=== PATIENT | female | born 1955 | race Caucasian/White ===

== ENCOUNTER 2021-11-01 10:30 | Emergency (ER) | payer MEDICARE, MEDICAID ==
[~2021-11-01] VITALS: Ht 170.2 cm; Wt 120.2 kg
[~2021-11-01 10:30] MED LIST: CARV25TA2 PO; COU4T PO; FLEC100T2 PO; LISI5TAB22 PO; WARF5TAB2 PO
[2021-11-01] MEDS ORDERED: acetaminophen 325mg tablet PO ONE (10:45)
--- NOTE | 2021-11-01 11:02 | NUR ---
PT OFF FLOOR TO CT
--- NOTE | 2021-11-01 11:20 | NUR ---
PT RETURNED FROM CT WITHOUT INCIDENT
--- NOTE | 2021-11-01 11:50 | NUR ---
AT BEDSIDE FOR D/C
[2021-11-01 12:15] VITALS: BP 115/72
== END 2021-11-01 12:20 | disposition home or self-care (01) ==
LOC: ER 10:31
DX: S00.81XA Abrasion of other part of head, initial encounter (principal); S09.90XA Unspecified injury of head, initial encounter; S00.83XA Contusion of other part of head, initial encounter; M54.2 Cervicalgia; I48.91 Unspecified atrial fibrillation; I10 Essential (primary) hypertension; K21.9 Gastro-esophageal reflux disease without esophagitis; Z79.899 Other long term (current) drug therapy; W10.8XXA Fall (on) (from) other stairs and steps, initial encounter; Y93.89 Activity, other specified; Y92.89 Other specified places as the place of occurrence of the external cause
CPT/HCPCS: 70450; 70486; 72125; 99285

== ENCOUNTER 2022-11-26 18:20 | Inpatient (IN) | payer MEDICARE, MEDICAID ==
[~2022-11-26] VITALS: Ht 170.2 cm; Wt 120.1 kg
[2022-11-26] MEDS ORDERED: ipratropium/albuterol 3ml nebule NEB ONE (18:42)
[2022-11-26] MEDS ORDERED: CefTRIAXone 2gm/D5W 50ml BAG 50 ML IV ONE (18:45)
[2022-11-26] MEDS ORDERED: methylPREDNISolone sod succ 125mg/2ml vial IV ONE (18:45)
[2022-11-26] MEDS ORDERED: normal saline 1000ML IV soln IVB ONE (18:45)
[2022-11-26 19:16] LABS: BASOPHILS % (AUTO) 0.5 % (0-1); EOSINOPHILS % (AUTO) 0.1 % (0-6); HEMOGLOBIN 13.8 g/dl (12.0-16.0); LYMPHOCYTES # (AUTO) 0.5 X10'3 (1.1-4.8); LYMPHOCYTES % (AUTO) 9.7 % (21-51); MEAN CORPUSCULAR HEMOGLOBIN 31.8 PG (27.0-31.0); MEAN CORPUSCULAR HGB CONC 33.6 g/dL (33.0-36.5); MEAN CORPUSCULAR VOLUME 94.6 FL (78-98); MEAN PLATELET VOLUME 9.7 FL (7.4-10.4); MONOCYTES # (AUTO) 0.4 X10'3 (0-0.9); MONOCYTES % (AUTO) 7.3 % (2-12); NEUTROPHILS % (AUTO) 82.4 % (42-75); PLATELET COUNT 121 X10'3 (140-440); RED BLOOD COUNT 4.34 X10'6 (4.20-5.60); RED CELL DISTRIBUTION WIDTH 13.7 % (11.5-14.5); WHITE BLOOD COUNT 4.9 X10'3 (4.5-11.0)
[2022-11-26] MEDS ORDERED: albuterol 2.5 MG/3 ML nebule CONTNEB ONE (19:20)
[2022-11-26 19:31] LABS: ALANINE AMINOTRANSFERASE 23 U/L (12-78); ALBUMIN 3.7 G/DL (3.4-5.0); ALKALINE PHOSPHATASE 75 IU/L (46-116); ANION GAP 7 (8-16); ASPARTATE AMINO TRANSFERASE 31 U/L (10-37); BLOOD UREA NITROGEN 23 MG/DL (7-18); BUN/CREATININE RATIO 17.2 (6.6-38.0); CALCIUM 9.8 MG/DL (8.5-10.1); CHLORIDE 104 MMOL/L (99-107); CREATININE 1.34 MG/DL (0.40-0.90); GLUCOSE 170 MG/DL (70-104); MAGNESIUM 1.5 MG/DL (1.5-2.4); POTASSIUM 4.5 MMOL/L (3.5-5.1); SODIUM 139 MMOL/L (135-145); TOTAL CARBON DIOXIDE 27.8 MMOL/L (24-32); TOTAL PROTEIN 7.5 G/DL (6.4-8.2); eGFR 39 ML/MIN
[2022-11-26] MEDS ORDERED: diltiazem 5mg/ml 5ml inj. IV ONE ×2 (19:45→23:10)
[2022-11-26] MEDS ORDERED: ringers solution, lacted 1,000 ML IV ONE (19:45)
[2022-11-26 20:11] LABS: APTT 27 SECONDS (22-32)
[2022-11-26] MEDS ORDERED: iohexol 300mg/ml 100ml inj. ONE (21:43)
[2022-11-26] MEDS ORDERED: magnesium 4gm in 100ml NS 100 ML IV ONE (21:45)
[2022-11-26] MEDS ORDERED: ondansetron/PF 4mg/2ml inj IV PRN (21:55)
[2022-11-26] MEDS ORDERED: magnesium hydroxide 30ml (MOM) UD suspension PO PRN (21:55)
[2022-11-26] MEDS ORDERED: magnesium 4gm in 100ml NS 100 ML IV PRN (21:55)
[2022-11-26] MEDS ORDERED: magnesium Cl slow-release 64mg tablet PO PRN (21:55)
[2022-11-26] MEDS ORDERED: mag hydrox/Alum hydrox/simeth 30ml oral suspension PO PRN (21:55)
[2022-11-26] MEDS ORDERED: potassium Cl 40MEQ/1/2NS 520ml 520 ML IV PRN (21:55)
[2022-11-26] MEDS ORDERED: potassium Cl 20 mEq SR tablet PO PRN ×2 (21:55)
[2022-11-26] MEDS ORDERED: albuterol 1.25 MG/3 ML (1/2 strength) nebule NEB PRN (22:00)
[2022-11-26 22:13] LABS: CLARITY,URINE CLOUDY (Clear); COLOR,URINE YELLOW (Yellow); GLUCOSE, URINE NEGATIVE (Neg); KETONES,URINE NEGATIVE (Neg); LEUKOCYTE ESTERASE ,URINE NEGATIVE (Neg); NITRITES, URINE POSITIVE (Neg); OCCULT BLOOD,URINE MODERATE (Neg); PH,URINE 5.5 (4.8-8.0); PROTEIN,URINE >=300 mg/dl (Neg); UROBILINOGEN,URINE 0.2 E.U/dL (0.2-1.0)
[2022-11-26 22:16] LABS: UA COLLECTION TYPE CLN CATCH MIDSTREAM
[2022-11-26] MEDS ORDERED: EXEM25TA5 PO (22:21)
[2022-11-26] MEDS ORDERED: FURO20TA4 PO (22:21)
[2022-11-26] MEDS ORDERED: PANT40TA54 PO (22:21)
[2022-11-26 22:24] LABS: SQUAMOUS EPITHELIAL CELL,UR MANY /LPF (FEW)
[2022-11-26] MEDS ORDERED: PROP40TA72 PO (22:24)
[2022-11-26] MEDS ORDERED: WARF1TAB83 PO (22:24)
[2022-11-26 22:25] LABS: FINE GRANULAR CAST 0-3 /LPF (NEGATIVE)
[2022-11-26 22:27] LABS: AMORPHOUS URATES 1+; BACTERIA,URINE 2+ /HPF (Neg)
[2022-11-26 22:29] LABS: YEAST FEW /HPF (NEGATIVE)
[2022-11-26 22:31] LABS: TRANSITIONAL EPI CELLS,URINE MODERATE /HPF
[2022-11-27] VITALS (13 sets, daily range): BP systolic 109–138; BP diastolic 58–77
[2022-11-27] MEDS ORDERED: carVEDilol 12.5mg tablet PO ONE (00:30)
--- NOTE | 2022-11-27 00:38 | NUR ---
PATIENT PLACED ON A HOSPITAL BED NO NEEDS AT THIS TIME
[2022-11-27] MEDS ORDERED: carvedilol 6.25mg tablet PO SCH ×2 (01:45→01:50)
[2022-11-27] MEDS ORDERED: carvedilol 6.25mg tablet PO ONE ×2 (01:45→01:50)
[2022-11-27] MEDS: diltiazem-NS 100mg/100ml 100 ML IV SCH ×3 (03:10→23:34)
[2022-11-27 03:46] LABS: BASOPHILS % (AUTO) 0.3 % (0-1); EOSINOPHILS % (AUTO) 0 % (0-6); HEMATOCRIT 39.5 % (35.0-45.0); HEMOGLOBIN 13.1 g/dl (12.0-16.0); LYMPHOCYTES # (AUTO) 0.5 X10'3 (1.1-4.8); LYMPHOCYTES % (AUTO) 6.7 % (21-51); MEAN CORPUSCULAR HEMOGLOBIN 31.5 PG (27.0-31.0); MEAN CORPUSCULAR VOLUME 95.5 FL (78-98); MEAN PLATELET VOLUME 9.9 FL (7.4-10.4); MONOCYTES # (AUTO) 0.5 X10'3 (0-0.9); MONOCYTES % (AUTO) 6.8 % (2-12); NEUTROPHILS # (AUTO) 6.2 X10'3 (1.8-7.7); NEUTROPHILS % (AUTO) 86.2 % (42-75); PLATELET COUNT 132 X10'3 (140-440); RED BLOOD COUNT 4.14 X10'6 (4.20-5.60); RED CELL DISTRIBUTION WIDTH 13.9 % (11.5-14.5); WHITE BLOOD COUNT 7.2 X10'3 (4.5-11.0)
[2022-11-27 04:04] LABS: ALANINE AMINOTRANSFERASE 25 U/L (12-78); ALBUMIN 3.5 G/DL (3.4-5.0); ALBUMIN/GLOBULIN RATIO 0.9 (1.1-1.5); ALKALINE PHOSPHATASE 71 IU/L (46-116); ANION GAP 8 (8-16); ASPARTATE AMINO TRANSFERASE 30 U/L (10-37); BILIRUBIN,TOTAL 1.7 MG/DL (0.1-1.0); BLOOD UREA NITROGEN 24 MG/DL (7-18); BUN/CREATININE RATIO 19.5 (6.6-38.0); CALCIUM 9.6 MG/DL (8.5-10.1); CHLORIDE 103 MMOL/L (99-107); CREATININE 1.23 MG/DL (0.40-0.90); GLUCOSE 153 MG/DL (70-104); POTASSIUM 4.5 MMOL/L (3.5-5.1); SODIUM 138 MMOL/L (135-145); TOTAL CARBON DIOXIDE 26.8 MMOL/L (24-32); TOTAL PROTEIN 7.2 G/DL (6.4-8.2); eGFR 44 ML/MIN
[2022-11-27 04:11] LABS: MAGNESIUM 4.8 MG/DL (1.5-2.4)
--- NOTE | 2022-11-27 07:16 | NUR ---
MD Martinez made aware of mag of 4.8. Per MD no new orders at this time.
[2022-11-27] MEDS ORDERED: carVEDilol 12.5mg tablet PO SCH (08:00)
[2022-11-27] MEDS ORDERED: methylPREDNISolone sod succ 125mg/2ml vial IV SCH (08:00)
[2022-11-27] MEDS: K and/or MAG REPLACEMENT MC SCH ×2 (08:00→19:36)
[2022-11-27] MEDS: pantoprazole 40mg Tablet.DR PO SCH (08:00)
[2022-11-27] MEDS: docusate sod 100mg capsule PO SCH ×2 (08:00→19:42)
[2022-11-27] MEDS: lisinopril 5mg tablet PO SCH (08:01)
[2022-11-27] MEDS: carVEDilol 12.5mg tablet PO SCH ×2 (08:01→19:43)
--- NOTE | 2022-11-27 11:43 | NUR ---
HI DR. NAILS, PT [facility] IN ROOM 3028B STILL SAT 89-90% ON MASK 10L. RT SUGGESTS MAYBE BIPAP? HR STILL 115-150 ON CARDIZEM 5ML/HR. THANKS ERIKA SMITHU
--- NOTE | 2022-11-27 12:05 | NUR ---
KARAN FOR PT [facility] ROOM 3021B. URGENT PLEASE. THANKS ERIKA SMITHU
[2022-11-27] MEDS: CefTRIAXone 2gm/D5W 50ml BAG 50 ML IV SCH (12:10)
[2022-11-27 12:21] LABS: ABG BASE EXCESS -9.2 mmol/L (-2.0-2.0); ABG HCO3 21.3 mmol/L (22.0-26.0); ABG OXYGEN SATURATION 94.7 % (94-97); ABG PCO2 (T) 66.7 mmHg (32.0-45.0); ABG PO2 (T) 89.6 mmHg (75.0-100.0); ALLEN'S TEST POSITIVE; FCOHb 0.5 % (0.0-3.9); FLOW 10 L/min; FMetHb 0.4 % (0.0-1.5); FO2Hb 93.8 % (94-97); PATIENT TEMPERATURE 36.6; TOTAL HEMOGLOBIN 14.2 G/dl (12.0-16.0)
--- NOTE | 2022-11-27 14:03 | NUR ---
NEED IV FOR PT IN 3028B, [facility], PLEASE. THANKS KIRT Segundo
[2022-11-27] MEDS: furosemide 40mg/4ml inj IV SCH ×2 (14:53→19:43)
--- NOTE | 2022-11-27 15:20 | NUR ---
Noted pt on carb controlled diet w/ no prior hx DM or A1C hx Glu 153-170mg/dl receiving Solumedrol per EMR. MERRILL estrada MD regarding cancelling carb control restriction and changing to heart healthy diet if amenable. Addendum: 11/27/22 at 15[address] Amended: Links added.
[2022-11-27 15:37] LABS: ABG BASE EXCESS 0.5 mmol/L (-2.0-2.0); ABG HCO3 31.5 mmol/L (22.0-26.0); ABG OXYGEN SATURATION 95.2 % (94-97); ABG PO2 (T) 85.7 mmHg (75.0-100.0); ALLEN'S TEST POSITIVE; FCOHb 0.4 % (0.0-3.9); FMetHb 0.4 % (0.0-1.5); FO2Hb 94.4 % (94-97); RESPIRATORY RATE 10 b/min; TIDAL VOLUME 442 mL; TOTAL HEMOGLOBIN 13.7 G/dl (12.0-16.0)
[2022-11-27 17:21] LABS: ABG BASE EXCESS -0.6 mmol/L (-2.0-2.0); ABG HCO3 28.2 mmol/L (22.0-26.0); ABG OXYGEN SATURATION 96.9 % (94-97); ABG PCO2 (T) 65.8 mmHg (32.0-45.0); ABG PO2 (T) 98.5 mmHg (75.0-100.0); ALLEN'S TEST POSITIVE; FCOHb 0.2 % (0.0-3.9); FMetHb 0.4 % (0.0-1.5); FO2Hb 96.3 % (94-97); RESPIRATORY RATE 10 b/min; TIDAL VOLUME 505 mL
[2022-11-27] MEDS: methylPREDNISolone sod succ/PF 40mg inj. IV SCH (19:43)
[2022-11-27] MEDS ORDERED: warfarin 4mg tablet PO ONE (21:00)
--- NOTE | 2022-11-27 23:25 | NUR ---
MD Patrick notified by telephone that patient had a heart rate sustained in the 130-140's. Patient is asymptomatic and blood pressure is 126/74. ordered a cardizem drip at a rate of 7.5mg/hour.
[2022-11-28] VITALS (19 sets, daily range): BP systolic 95–132; BP diastolic 50–77
[2022-11-28 06:47] LABS: BASOPHILS % (AUTO) 0.1 % (0-1); EOSINOPHILS % (AUTO) 0 % (0-6); HEMATOCRIT 38.5 % (35.0-45.0); LYMPHOCYTES # (AUTO) 0.3 X10'3 (1.1-4.8); LYMPHOCYTES % (AUTO) 5.2 % (21-51); MEAN CORPUSCULAR HEMOGLOBIN 32.1 PG (27.0-31.0); MEAN CORPUSCULAR HGB CONC 33.7 g/dL (33.0-36.5); MEAN CORPUSCULAR VOLUME 95.1 FL (78-98); MEAN PLATELET VOLUME 9.8 FL (7.4-10.4); MONOCYTES # (AUTO) 0.3 X10'3 (0-0.9); MONOCYTES % (AUTO) 4.9 % (2-12); NEUTROPHILS # (AUTO) 5.1 X10'3 (1.8-7.7); NEUTROPHILS % (AUTO) 89.8 % (42-75); PLATELET COUNT 121 X10'3 (140-440); RED BLOOD COUNT 4.05 X10'6 (4.20-5.60); RED CELL DISTRIBUTION WIDTH 14.1 % (11.5-14.5); WHITE BLOOD COUNT 5.7 X10'3 (4.5-11.0)
[2022-11-28 07:05] LABS: ALANINE AMINOTRANSFERASE 16 U/L (12-78); ALBUMIN 3.2 G/DL (3.4-5.0); ALBUMIN/GLOBULIN RATIO 0.9 (1.1-1.5); ALKALINE PHOSPHATASE 63 IU/L (46-116); ANION GAP 7 (8-16); ASPARTATE AMINO TRANSFERASE 27 U/L (10-37); BILIRUBIN,TOTAL 0.8 MG/DL (0.1-1.0); BLOOD UREA NITROGEN 42 MG/DL (7-18); BUN/CREATININE RATIO 30.7 (6.6-38.0); CALCIUM 9.4 MG/DL (8.5-10.1); CHLORIDE 103 MMOL/L (99-107); CREATININE 1.37 MG/DL (0.40-0.90); GLUCOSE 166 MG/DL (70-104); MAGNESIUM 2.5 MG/DL (1.5-2.4); POTASSIUM 4.4 MMOL/L (3.5-5.1); SODIUM 141 MMOL/L (135-145); TOTAL CARBON DIOXIDE 30.6 MMOL/L (24-32); TOTAL PROTEIN 6.7 G/DL (6.4-8.2); eGFR 38 ML/MIN
[2022-11-28] MEDS: CefTRIAXone 2gm/D5W 50ml BAG 50 ML IV SCH (07:53)
[2022-11-28] MEDS: furosemide 40mg/4ml inj IV SCH ×2 (07:54→19:13)
[2022-11-28] MEDS: lisinopril 5mg tablet PO SCH (07:54)
[2022-11-28] MEDS: methylPREDNISolone sod succ/PF 40mg inj. IV SCH ×2 (07:54→19:13)
[2022-11-28] MEDS: pantoprazole 40mg Tablet.DR PO SCH (07:55)
[2022-11-28] MEDS: docusate sod 100mg capsule PO SCH ×2 (07:55→19:13)
[2022-11-28] MEDS: K and/or MAG REPLACEMENT MC SCH ×2 (07:55→19:09)
[2022-11-28] MEDS: carVEDilol 12.5mg tablet PO SCH ×2 (07:55→19:13)
[2022-11-28] MEDS: acetaminophen 325mg tablet PO PRN (08:24)
[2022-11-28 13:11] LABS: ABG BASE EXCESS 2.3 mmol/L (-2.0-2.0); ABG HCO3 30.7 mmol/L (22.0-26.0); ABG OXYGEN SATURATION 98.6 % (94-97); ABG PCO2 (T) 64.3 mmHg (32.0-45.0); ALLEN'S TEST POSITIVE; FCOHb 0.1 % (0.0-3.9); FMetHb 0.4 % (0.0-1.5); FO2Hb 98.1 % (94-97); PATIENT TEMPERATURE 36.7; RESPIRATORY RATE 10 b/min; TOTAL HEMOGLOBIN 14.1 G/dl (12.0-16.0)
[2022-11-28] MEDS: diltiazem-NS 100mg/100ml 100 ML IV SCH ×2 (14:06→20:50)
[2022-11-28] MEDS ORDERED: carVEDilol 12.5mg tablet PO SCH (20:00)
[2022-11-28] MEDS ORDERED: carVEDilol 12.5mg tablet PO ONE (20:35)
[2022-11-28] MEDS: acetaZOLAMIDE 500mg capsule.SA PO SCH (20:47)
[2022-11-29] VITALS (15 sets, daily range): BP systolic 108–138; BP diastolic 58–76
[2022-11-29 06:32] LABS: ALANINE AMINOTRANSFERASE 22 U/L (12-78); ALBUMIN 2.9 G/DL (3.4-5.0); ALBUMIN/GLOBULIN RATIO 0.7 (1.1-1.5); ALKALINE PHOSPHATASE 56 IU/L (46-116); ANION GAP 7 (8-16); ASPARTATE AMINO TRANSFERASE 19 U/L (10-37); BASOPHILS % (AUTO) 0.2 % (0-1); BILIRUBIN,TOTAL 0.5 MG/DL (0.1-1.0); BLOOD UREA NITROGEN 52 MG/DL (7-18); BUN/CREATININE RATIO 41.9 (6.6-38.0); CALCIUM 9.9 MG/DL (8.5-10.1); CHLORIDE 104 MMOL/L (99-107); CREATININE 1.24 MG/DL (0.40-0.90); EOSINOPHILS % (AUTO) 0 % (0-6); GLUCOSE 195 MG/DL (70-104); HEMATOCRIT 40.6 % (35.0-45.0); HEMOGLOBIN 13.4 g/dl (12.0-16.0); LYMPHOCYTES # (AUTO) 0.3 X10'3 (1.1-4.8); LYMPHOCYTES % (AUTO) 8.1 % (21-51); MAGNESIUM 2.4 MG/DL (1.5-2.4); MEAN CORPUSCULAR HEMOGLOBIN 31.7 PG (27.0-31.0); MEAN CORPUSCULAR HGB CONC 33.1 g/dL (33.0-36.5); MEAN CORPUSCULAR VOLUME 95.8 FL (78-98); MEAN PLATELET VOLUME 10.4 FL (7.4-10.4); MONOCYTES # (AUTO) 0.3 X10'3 (0-0.9); MONOCYTES % (AUTO) 6.9 % (2-12); NEUTROPHILS # (AUTO) 3.4 X10'3 (1.8-7.7); NEUTROPHILS % (AUTO) 84.8 % (42-75); PLATELET COUNT 114 X10'3 (140-440); POTASSIUM 4.4 MMOL/L (3.5-5.1); RED BLOOD COUNT 4.24 X10'6 (4.20-5.60); RED CELL DISTRIBUTION WIDTH 14.2 % (11.5-14.5); SODIUM 142 MMOL/L (135-145); TOTAL CARBON DIOXIDE 31.5 MMOL/L (24-32); TOTAL PROTEIN 7.1 G/DL (6.4-8.2); eGFR 43 ML/MIN
[2022-11-29] MEDS: K and/or MAG REPLACEMENT MC SCH ×2 (08:00→19:27)
--- NOTE | 2022-11-29 08:19 | NUR ---
MORNING DR. DIEGO PT [facility], ROOM 3028B, INR 4.6 AND PT43.2 THANKS ERIKA MORALEZU
[2022-11-29] MEDS: methylPREDNISolone sod succ/PF 40mg inj. IV SCH ×2 (08:35→19:25)
[2022-11-29] MEDS: docusate sod 100mg capsule PO SCH ×2 (08:35→19:24)
[2022-11-29] MEDS: acetaZOLAMIDE 500mg capsule.SA PO SCH ×2 (08:35→19:27)
[2022-11-29] MEDS: furosemide 40mg/4ml inj IV SCH ×2 (08:35→19:25)
--- NOTE | 2022-11-29 08:35 | NUR ---
PAGED RT: "PT [facility], 2053P, READY TO SWITCH TO BIPAP. THANKS"
[2022-11-29] MEDS: CefTRIAXone 2gm/D5W 50ml BAG 50 ML IV SCH (08:36)
[2022-11-29] MEDS: carVEDilol 12.5mg tablet PO SCH ×2 (08:36→19:24)
[2022-11-29] MEDS: pantoprazole 40mg Tablet.DR PO SCH (08:36)
[2022-11-29] MEDS: diltiazem-NS 100mg/100ml 100 ML IV SCH (08:38)
[2022-11-29] MEDS ORDERED: doxycycline inj 200 MG in normal saline 250ml IV soln 250 ML IV ONE (09:10)
[2022-11-29] MEDS ORDERED: PERFLUTREN PROTEIN-A MICROSPHR (Optison) 0.22 MG/ML 3ML VIAL IV ONE (09:10)
--- NOTE | 2022-11-29 09:44 | NUR ---
PT [facility] ROOM 3028B HAS ORDER FOR ECHO WITH [facility]. THANKS
[2022-11-29 10:03] LABS: LIPASE 152 U/L (73-393)
[2022-11-29] MEDS: acetaminophen 325mg tablet PO PRN (11:43)
[2022-11-29] MEDS: diltiazem 30mg tablet PO SCH (19:25)
[2022-11-29] MEDS: doxycycline inj 100 MG in normal saline 100ml IV soln 100 ML IV SCH (19:26)
[2022-11-30] MEDS: diltiazem 30mg tablet PO SCH ×4 (01:10→21:21)
[2022-11-30 02:25] VITALS: BP 126/67
[2022-11-30 06:09] LABS: BASOPHILS % (AUTO) 0.2 % (0-1); EOSINOPHILS % (AUTO) 0 % (0-6); HEMATOCRIT 40.1 % (35.0-45.0); HEMOGLOBIN 13.2 g/dl (12.0-16.0); LYMPHOCYTES # (AUTO) 0.3 X10'3 (1.1-4.8); LYMPHOCYTES % (AUTO) 7.5 % (21-51); MEAN CORPUSCULAR HEMOGLOBIN 31.5 PG (27.0-31.0); MEAN CORPUSCULAR HGB CONC 32.8 g/dL (33.0-36.5); MEAN PLATELET VOLUME 10.6 FL (7.4-10.4); MONOCYTES # (AUTO) 0.2 X10'3 (0-0.9); MONOCYTES % (AUTO) 5.4 % (2-12); NEUTROPHILS # (AUTO) 3.9 X10'3 (1.8-7.7); NEUTROPHILS % (AUTO) 86.9 % (42-75); PLATELET COUNT 124 X10'3 (140-440); RED BLOOD COUNT 4.18 X10'6 (4.20-5.60); RED CELL DISTRIBUTION WIDTH 14.2 % (11.5-14.5); WHITE BLOOD COUNT 4.5 X10'3 (4.5-11.0)
[2022-11-30 06:52] LABS: ALANINE AMINOTRANSFERASE 14 U/L (12-78); ALBUMIN 2.9 G/DL (3.4-5.0); ALBUMIN/GLOBULIN RATIO 0.8 (1.1-1.5); ALKALINE PHOSPHATASE 55 IU/L (46-116); ANION GAP 4 (8-16); ASPARTATE AMINO TRANSFERASE 18 U/L (10-37); BILIRUBIN,TOTAL 0.5 MG/DL (0.1-1.0); BLOOD UREA NITROGEN 50 MG/DL (7-18); BUN/CREATININE RATIO 43.5 (6.6-38.0); CALCIUM 9.6 MG/DL (8.5-10.1); CHLORIDE 104 MMOL/L (99-107); CREATININE 1.15 MG/DL (0.40-0.90); GLUCOSE 237 MG/DL (70-104); MAGNESIUM 2.4 MG/DL (1.5-2.4); POTASSIUM 3.5 MMOL/L (3.5-5.1); SODIUM 143 MMOL/L (135-145); TOTAL CARBON DIOXIDE 35.2 MMOL/L (24-32); TOTAL PROTEIN 6.4 G/DL (6.4-8.2); eGFR 47 ML/MIN
[2022-11-30 07:00] VITALS: BP 117/65
[2022-11-30] MEDS: pantoprazole 40mg Tablet.DR PO SCH (07:30)
[2022-11-30] MEDS ORDERED: PERFLUTREN PROTEIN-A MICROSPHR (Optison) 0.22 MG/ML 3ML VIAL IV ONE (07:30)
[2022-11-30] MEDS: K and/or MAG REPLACEMENT MC SCH ×2 (08:00→20:00)
[2022-11-30 08:03] LABS: PLATELET ESTIMATE DECREASED; TOTAL CELLS COUNTED 100
[2022-11-30 08:04] LABS: ELLIPTOCYTES FEW; TEAR DROP CELLS FEW
[2022-11-30] MEDS: furosemide 40mg/4ml inj IV SCH ×2 (08:51→21:21)
[2022-11-30] MEDS: methylPREDNISolone sod succ/PF 40mg inj. IV SCH ×2 (08:51→21:22)
[2022-11-30] MEDS: CefTRIAXone/D5W-Rocephin 1gm 50 ML IV SCH (08:51)
[2022-11-30] MEDS: docusate sod 100mg capsule PO SCH ×2 (08:52→20:00)
[2022-11-30] MEDS: doxycycline inj 100 MG in normal saline 100ml IV soln 100 ML IV SCH ×2 (08:52→21:12)
[2022-11-30] MEDS: acetaZOLAMIDE 500mg capsule.SA PO SCH (08:53)
[2022-11-30] MEDS: carVEDilol 12.5mg tablet PO SCH ×2 (08:54→21:20)
[2022-11-30 13:00] VITALS: BP 97/59
[2022-11-30 18:00] VITALS: BP 124/71
[2022-11-30] MEDS: acetaminophen 325mg tablet PO PRN (21:21)
[2022-11-30 22:00] VITALS: BP 117/67
--- NOTE | 2022-11-30 22:00 | NUR ---
Room 3028B pt. is awake alert oriented x4 appears depressed. Needs motivation to care for self and reposition. Denies need for CPAP overnight. Pt. c/o right knee pain with repositioning in bed. Medicated with Tylenol as needed x2. Pt. is incontinent of urine and stool skin care given multiple times during the night. No skin breakdown noted. Plan for [facility] when cleared. Needs PT OT strengthening.
[2022-12-01] MEDS: diltiazem 30mg tablet PO SCH ×4 (01:38→20:00)
[2022-12-01 02:00] VITALS: BP 95/57
[2022-12-01] MEDS: acetaminophen 325mg tablet PO PRN ×2 (04:49→14:47)
[2022-12-01 06:10] LABS: BASOPHILS % (AUTO) 0.2 % (0-1); EOSINOPHILS % (AUTO) 0 % (0-6); HEMATOCRIT 40.6 % (35.0-45.0); HEMOGLOBIN 13.6 g/dl (12.0-16.0); LYMPHOCYTES # (AUTO) 0.3 X10'3 (1.1-4.8); LYMPHOCYTES % (AUTO) 6.7 % (21-51); MEAN CORPUSCULAR HGB CONC 33.5 g/dL (33.0-36.5); MEAN CORPUSCULAR VOLUME 95.4 FL (78-98); MEAN PLATELET VOLUME 9.9 FL (7.4-10.4); MONOCYTES # (AUTO) 0.1 X10'3 (0-0.9); MONOCYTES % (AUTO) 3.1 % (2-12); NEUTROPHILS # (AUTO) 4.3 X10'3 (1.8-7.7); PLATELET COUNT 117 X10'3 (140-440); RED BLOOD COUNT 4.26 X10'6 (4.20-5.60); RED CELL DISTRIBUTION WIDTH 13.8 % (11.5-14.5); WHITE BLOOD COUNT 4.8 X10'3 (4.5-11.0)
[2022-12-01 06:32] LABS: ALANINE AMINOTRANSFERASE 12 U/L (12-78); ALBUMIN 2.8 G/DL (3.4-5.0); ALBUMIN/GLOBULIN RATIO 0.8 (1.1-1.5); ALKALINE PHOSPHATASE 53 IU/L (46-116); ANION GAP 6 (8-16); ASPARTATE AMINO TRANSFERASE 15 U/L (10-37); BILIRUBIN,TOTAL 0.4 MG/DL (0.1-1.0); BLOOD UREA NITROGEN 50 MG/DL (7-18); CALCIUM 9.5 MG/DL (8.5-10.1); CHLORIDE 104 MMOL/L (99-107); CREATININE 1.25 MG/DL (0.40-0.90); GLUCOSE 227 MG/DL (70-104); POTASSIUM 3.6 MMOL/L (3.5-5.1); SODIUM 143 MMOL/L (135-145); TOTAL CARBON DIOXIDE 32.9 MMOL/L (24-32); TOTAL PROTEIN 6.4 G/DL (6.4-8.2); eGFR 43 ML/MIN
[2022-12-01 07:00] VITALS: BP 117/60
[2022-12-01] MEDS: K and/or MAG REPLACEMENT MC SCH ×2 (08:00→20:00)
[2022-12-01] MEDS: CefTRIAXone/D5W-Rocephin 1gm 50 ML IV SCH (08:20)
[2022-12-01] MEDS: doxycycline inj 100 MG in normal saline 100ml IV soln 100 ML IV SCH ×2 (08:21→19:55)
[2022-12-01] MEDS: carVEDilol 12.5mg tablet PO SCH ×2 (08:22→20:01)
[2022-12-01] MEDS: methylPREDNISolone sod succ/PF 40mg inj. IV SCH (08:23)
[2022-12-01] MEDS: pantoprazole 40mg Tablet.DR PO SCH (08:23)
[2022-12-01] MEDS: furosemide 40mg/4ml inj IV SCH (08:23)
[2022-12-01] MEDS: docusate sod 100mg capsule PO SCH ×2 (08:23→20:00)
[2022-12-01 11:00] VITALS: BP 104/59
[2022-12-01 15:00] VITALS: BP 105/54
[2022-12-01 16:31] LABS: ABG BASE EXCESS 5.2 mmol/L (-2.0-2.0); ABG HCO3 33.5 mmol/L (22.0-26.0); ABG OXYGEN SATURATION 95.1 % (94-97); ABG PCO2 (T) 65.6 mmHg (32.0-45.0); ABG PO2 (T) 79.6 mmHg (75.0-100.0); ALLEN'S TEST POSITIVE; FCOHb 0.6 % (0.0-3.9); FLOW 2 L/min; FMetHb 0.5 % (0.0-1.5); FO2Hb 94.1 % (94-97); TOTAL HEMOGLOBIN 14.7 G/dl (12.0-16.0)
--- NOTE | 2022-12-01 16:36 | NUR ---
Critical pCO2 of 65.6 reported to MD via page at this time
--- NOTE | 2022-12-01 16:36 | NUR ---
Initial: Pt admit DX acute bronchospasm, bronchial inflammation/infection, encephalopathy, acute respiratory failure, afib RVR, and SIS w/ CKD per EMR. PO ~60% avg overall heart healthy diet though improving to ~81% avg recent meals. Overall partially meeting estimated needs though if current PO trends persist will be meeting needs. LBM 11/30 receiving routine colace. Will monitor for further nutrition intervention needs this admit. Rec: 1. continue heart healthy diet; encourage PO 2. monitor further PO trends for ONS needs 3. routine bowel care 4. scaled wt this admit; subsequent weekly wts Addendum: 12/01/22 at 1637 [address] Amended: Links added.
[2022-12-01 18:00] VITALS: BP 119/75
[2022-12-01] MEDS ORDERED: warfarin 3mg tablet PO ONE (21:00)
[2022-12-01 22:00] VITALS: BP 138/62
[2022-12-02 02:00] VITALS: BP 128/68
[2022-12-02] MEDS: diltiazem 30mg tablet PO SCH ×4 (02:36→20:18)
[2022-12-02 06:02] LABS: BASOPHILS % (AUTO) 0.1 % (0-1); EOSINOPHILS % (AUTO) 0.1 % (0-6); HEMATOCRIT 42.6 % (35.0-45.0); HEMOGLOBIN 14.2 g/dl (12.0-16.0); LYMPHOCYTES # (AUTO) 0.3 X10'3 (1.1-4.8); LYMPHOCYTES % (AUTO) 5.3 % (21-51); MEAN CORPUSCULAR HEMOGLOBIN 31.8 PG (27.0-31.0); MEAN CORPUSCULAR HGB CONC 33.4 g/dL (33.0-36.5); MEAN CORPUSCULAR VOLUME 95.2 FL (78-98); MEAN PLATELET VOLUME 10.2 FL (7.4-10.4); MONOCYTES # (AUTO) 0.3 X10'3 (0-0.9); MONOCYTES % (AUTO) 5.2 % (2-12); NEUTROPHILS # (AUTO) 4.7 X10'3 (1.8-7.7); NEUTROPHILS % (AUTO) 89.3 % (42-75); PLATELET COUNT 135 X10'3 (140-440); RED BLOOD COUNT 4.48 X10'6 (4.20-5.60); RED CELL DISTRIBUTION WIDTH 13.6 % (11.5-14.5); WHITE BLOOD COUNT 5.3 X10'3 (4.5-11.0)
[2022-12-02 06:13] LABS: ALANINE AMINOTRANSFERASE 17 U/L (12-78); ALBUMIN 2.8 G/DL (3.4-5.0); ALBUMIN/GLOBULIN RATIO 0.8 (1.1-1.5); ALKALINE PHOSPHATASE 51 IU/L (46-116); ANION GAP 6 (8-16); ASPARTATE AMINO TRANSFERASE 9 U/L (10-37); BILIRUBIN,TOTAL 0.5 MG/DL (0.1-1.0); BLOOD UREA NITROGEN 41 MG/DL (7-18); BUN/CREATININE RATIO 40.6 (6.6-38.0); CALCIUM 9.9 MG/DL (8.5-10.1); CHLORIDE 105 MMOL/L (99-107); CREATININE 1.01 MG/DL (0.40-0.90); GLUCOSE 236 MG/DL (70-104); MAGNESIUM 2.1 MG/DL (1.5-2.4); PHOSPHORUS 3.1 MG/DL (2.3-4.5); POTASSIUM 3.7 MMOL/L (3.5-5.1); SODIUM 143 MMOL/L (135-145); TOTAL CARBON DIOXIDE 32.5 MMOL/L (24-32); TOTAL PROTEIN 6.4 G/DL (6.4-8.2); eGFR 55 ML/MIN
--- NOTE | 2022-12-02 06:47 | NUR ---
Problems reprioritized. Patient report given, questions answered & plan of care reviewed with Yelena BRIAN.
[2022-12-02] MEDS: K and/or MAG REPLACEMENT MC SCH ×2 (08:00→20:00)
[2022-12-02] MEDS: pantoprazole 40mg Tablet.DR PO SCH (10:14)
[2022-12-02] MEDS: furosemide 40mg/4ml inj IV SCH (10:15)
[2022-12-02] MEDS: carVEDilol 12.5mg tablet PO SCH ×2 (10:16→20:19)
[2022-12-02] MEDS: docusate sod 100mg capsule PO SCH ×2 (10:16→20:00)
[2022-12-02] MEDS: predniSONE 20 mg tablet PO SCH (10:16)
[2022-12-02] MEDS: doxycycline inj 100 MG in normal saline 100ml IV soln 100 ML IV SCH ×2 (10:31→20:55)
[2022-12-02] MEDS: CefTRIAXone/D5W-Rocephin 1gm 50 ML IV SCH (10:31)
[2022-12-02 18:00] VITALS: BP 120/63
[2022-12-02] MEDS ORDERED: warfarin 4mg tablet PO SCH (21:00)
[2022-12-03] MEDS: diltiazem 30mg tablet PO SCH ×2 (01:45→08:32)
[2022-12-03 02:00] VITALS: BP 119/83
[2022-12-03 05:56] LABS: BASOPHILS % (AUTO) 0.3 % (0-1); EOSINOPHILS % (AUTO) 0 % (0-6); HEMOGLOBIN 15.2 g/dl (12.0-16.0); LYMPHOCYTES # (AUTO) 0.4 X10'3 (1.1-4.8); LYMPHOCYTES % (AUTO) 6.1 % (21-51); MEAN CORPUSCULAR HEMOGLOBIN 31.9 PG (27.0-31.0); MEAN CORPUSCULAR HGB CONC 33.8 g/dL (33.0-36.5); MEAN CORPUSCULAR VOLUME 94.1 FL (78-98); MEAN PLATELET VOLUME 9.7 FL (7.4-10.4); MONOCYTES # (AUTO) 0.7 X10'3 (0-0.9); MONOCYTES % (AUTO) 9.9 % (2-12); NEUTROPHILS # (AUTO) 5.6 X10'3 (1.8-7.7); NEUTROPHILS % (AUTO) 83.7 % (42-75); PLATELET COUNT 151 X10'3 (140-440); RED BLOOD COUNT 4.78 X10'6 (4.20-5.60); RED CELL DISTRIBUTION WIDTH 13.6 % (11.5-14.5); WHITE BLOOD COUNT 6.7 X10'3 (4.5-11.0)
[2022-12-03 06:04] LABS: ALANINE AMINOTRANSFERASE 21 U/L (12-78); ALBUMIN 2.9 G/DL (3.4-5.0); ALBUMIN/GLOBULIN RATIO 0.8 (1.1-1.5); ALKALINE PHOSPHATASE 53 IU/L (46-116); ANION GAP 4 (8-16); ASPARTATE AMINO TRANSFERASE 11 U/L (10-37); BILIRUBIN,TOTAL 0.6 MG/DL (0.1-1.0); BLOOD UREA NITROGEN 41 MG/DL (7-18); BUN/CREATININE RATIO 42.7 (6.6-38.0); CALCIUM 8.6 MG/DL (8.5-10.1); CHLORIDE 106 MMOL/L (99-107); CREATININE 0.96 MG/DL (0.40-0.90); GLUCOSE 195 MG/DL (70-104); PHOSPHORUS 2.4 MG/DL (2.3-4.5); POTASSIUM 3.8 MMOL/L (3.5-5.1); SODIUM 144 MMOL/L (135-145); TOTAL CARBON DIOXIDE 34.1 MMOL/L (24-32); TOTAL PROTEIN 6.4 G/DL (6.4-8.2); eGFR 58 ML/MIN
--- NOTE | 2022-12-03 06:10 | NUR ---
Patient in room PCU 3028. I have received report from DRE BRIAN and had the opportunity to ask questions and assume patient care.
[2022-12-03 07:00] VITALS: BP 124/67
[2022-12-03] MEDS: K and/or MAG REPLACEMENT MC SCH (08:00)
[2022-12-03] MEDS: docusate sod 100mg capsule PO SCH (08:00)
[2022-12-03] MEDS: predniSONE 20 mg tablet PO SCH (08:32)
[2022-12-03] MEDS: pantoprazole 40mg Tablet.DR PO SCH (08:32)
[2022-12-03] MEDS: carVEDilol 12.5mg tablet PO SCH (08:32)
[2022-12-03] MEDS: furosemide 40mg/4ml inj IV SCH (08:33)
[2022-12-03] MEDS: CefTRIAXone/D5W-Rocephin 1gm 50 ML IV SCH (08:33)
[2022-12-03] MEDS ORDERED: diltiazem 30mg tablet PO ONE (08:48)
--- NOTE | 2022-12-03 08:55 | NUR ---
called pharmacy to restock Cardizem in both omni cells. need to give med to pt.
[2022-12-03 09:25] VITALS: BP 118/68
[2022-12-03] MEDS: doxycycline inj 100 MG in normal saline 100ml IV soln 100 ML IV SCH (09:35)
[2022-12-03 11:00] VITALS: BP 101/68
--- NOTE | 2022-12-03 11:45 | NUR ---
PT STATED SHE WAS HAVING PAIN FROM IV, MIDLINE LOOKS GOOD AND IS FLUSHING. PT SAID SHE MAY BE SENSITIVE TO HER VEINS WITH ABX. I NOTIFIED THE DR HE SAID THAT FINE HE WILL SWITCH TO PO.
--- NOTE | 2022-12-03 11:54 | NUR ---
PT STATED SHE HAD A 8/10 PAIN FROM IV INFUSION, BUT DOES NOT WANT PAIN MEDS IT GOES AWAY ONCE INFUSION STOPPED
[2022-12-03] MEDS ORDERED: diltiazem 30mg tablet PO SCH (14:00)
[2022-12-03 15:00] VITALS: BP 148/72
--- NOTE | 2022-12-03 17:02 | NUR ---
Problems reprioritized. Patient report given, questions answered & plan of care reviewed with HIRA AT [facility].
--- NOTE | 2022-12-03 17:14 | NUR ---
PT IS STABLE FOR DC, IV WAS DC PER FACILITY, ALL BELONGINGS TAKEN, SHE WAS WHEELED DOWN BY [facility] PERSONNEL AND LEFT IN A [facility] AND WAS TAKEN TO [facility]. REPORT HAS BEEN CALLED TO [facility]
[2022-12-03] MEDS ORDERED: warfarin 5mg tablet PO ONE (21:00)
== END 2022-12-03 17:10 | DRG 189 ==
LOC: ER 18:21 → ED HOLD 21:57 → PCU 3S 11-27 10:02
PROVIDERS: ADMIT Internal Medicine; ATTEND Internal Medicine
PROC: BW241ZZ Computerized Tomography (CT Scan) of Chest and Abdomen using Low Osmolar Contrast (ICD-10-PCS; 2022-11-26)
PROC: 5A09357 Assistance with Respiratory Ventilation, Less than 24 Consecutive Hours, Continuous Positive Airway Pressure (ICD-10-PCS; principal; 2022-11-27)
PROC: 5A09357 Assistance with Respiratory Ventilation, Less than 24 Consecutive Hours, Continuous Positive Airway Pressure (ICD-10-PCS; 2022-11-28)
DX: J96.02 Acute respiratory failure with hypercapnia (principal); N17.0 Acute kidney failure with tubular necrosis; I13.0 Hypertensive heart and chronic kidney disease with heart failure and stage 1 through stage 4 chronic kidney disease, or unspecified chronic kidney disease; G93.40 Encephalopathy, unspecified; J45.909 Unspecified asthma, uncomplicated; Z20.822 Contact with and (suspected) exposure to COVID-19; I48.91 Unspecified atrial fibrillation; D25.9 Leiomyoma of uterus, unspecified; E83.41 Hypermagnesemia; Z60.2 Problems related to living alone; N18.9 Chronic kidney disease, unspecified; I50.9 Heart failure, unspecified; G47.33 Obstructive sleep apnea (adult) (pediatric); K21.9 Gastro-esophageal reflux disease without esophagitis; R12 Heartburn; Z87.891 Personal history of nicotine dependence; Z79.899 Other long term (current) drug therapy; Z79.01 Long term (current) use of anticoagulants
CPT/HCPCS: 36410; 36415; 36600; 71045; 71260; 76937; 80053; 81001; 82803; 83605; 83690; 83735; 83880; 84100; 84145; 84443; 85007; 85018; 85025; 85610; 85730; 87040; 87081; 87502; 87503; 87811; 93005; 93308; 94640; 94660; 94760; 97110; 97116; 97161; 97530; 97535; 99285; A4333; A4615; A4620; A6258; C1751; G0378; J0696; J1940; J2405; J2920; J2930; J3475; J3490; J7030; J7040; J7050; J7120; J7512; Q9967

== ENCOUNTER 2025-02-28 10:19 | Day surgery (SDC) | payer MEDICARE, MEDICAID ==
[2025-02-24 11:03] LABS: BASOPHILS % (AUTO) 0.7 % (0-1); EOSINOPHILS # (AUTO) 0.1 X10'3 (0-0.9); EOSINOPHILS % (AUTO) 2.6 % (0-6); HEMATOCRIT 40.8 % (35.0-45.0); HEMOGLOBIN 13.7 g/dl (12.0-16.0); LYMPHOCYTES # (AUTO) 0.8 X10'3 (1.1-4.8); MEAN CORPUSCULAR HEMOGLOBIN 32.6 PG (27.0-31.0); MEAN CORPUSCULAR HGB CONC 33.6 g/dL (33.0-36.5); MEAN PLATELET VOLUME 8.8 FL (7.4-10.4); MONOCYTES # (AUTO) 0.4 X10'3 (0-0.9); MONOCYTES % (AUTO) 9.5 % (2-12); NEUTROPHILS % (AUTO) 68.2 % (42-75); PLATELET COUNT 127 X10'3 (140-440); RED BLOOD COUNT 4.21 X10'6 (4.20-5.60); RED CELL DISTRIBUTION WIDTH 14.2 % (11.5-14.5); WHITE BLOOD COUNT 4.4 X10'3 (4.5-11.0)
[2025-02-24 11:14] LABS: APTT 29 SECONDS (22-32); INR 1.3 INR
[2025-02-24 11:24] LABS: ALBUMIN 3.3 G/DL (3.4-5.0); ANION GAP 6 (8-16); BLOOD UREA NITROGEN 14 MG/DL (7-18); BUN/CREATININE RATIO 15.2 (10.0-20.0); CALCIUM 9.1 MG/DL (8.5-10.1); CHLORIDE 111 MMOL/L (99-107); CHOL/HDL RATIO 2.3 (0.00-4.99); CHOLESTEROL 120 MG/DL (0-200); CREATININE 0.92 MG/DL (0.40-0.90); GLUCOSE 112 MG/DL (70-104); HDL CHOLESTEROL 52 MG/DL (35-60); LDL CHOLESTEROL 54 MG/DL (50-100); POTASSIUM 3.8 MMOL/L (3.5-5.1); SODIUM 145 MMOL/L (135-145); TOTAL CARBON DIOXIDE 28.2 MMOL/L (24-32); TRIGLYCERIDES 107 MG/DL (20-135); eGFR 61 ML/MIN
[~2025-02-28] VITALS: Ht 165.1 cm; Wt 118.8 kg
[2025-02-28] VITALS (11 sets, daily range): BP systolic 106–139; BP diastolic 46–118; PULSE 53–136; RESP 16; TEMP 97.9; O2SAT 93–100
[~2025-02-28 10:19] MED LIST changes: +EXEM25TA5 PO; -FLEC100T2 PO; +FURO20TA4 PO; +PANT40TA54 PO; +PROP40TA72 PO; +WARF1TAB83 PO; -WARF5TAB2 PO
[2025-02-28] MEDS ORDERED: APIX5TAB3 PO (10:33)
[2025-02-28] MEDS ORDERED: FLUT1AER INH (10:36)
[2025-02-28] MEDS ORDERED: SACU1TAB PO (10:36)
[2025-02-28] MEDS ORDERED: EMPA10TA PO (10:36)
[2025-02-28] MEDS ORDERED: ATOR40TA72 PO (10:36)
[2025-02-28] MEDS ORDERED: CHOL500050 PO (10:38)
[2025-02-28] MEDS: fentaNYL/PF 50MCG/1 ML 2ML syringe IV ONE (13:27)
[2025-02-28] MEDS: MIDAZolam 1mg/ml 10ml vial IV ONE (13:27)
[2025-02-28] MEDS: normal saline 1000ml 1,000 ML IV SCH (13:28)
== END 2025-02-28 15:55 | disposition home or self-care (01) ==
LOC: SSTAY O 10:19
PROVIDERS: ATTEND Student in an Organized Health Care Education/Training Program
DX: I48.91 Unspecified atrial fibrillation (principal); E78.5 Hyperlipidemia, unspecified; I11.0 Hypertensive heart disease with heart failure; I50.9 Heart failure, unspecified; K21.9 Gastro-esophageal reflux disease without esophagitis; G47.33 Obstructive sleep apnea (adult) (pediatric); I25.10 Atherosclerotic heart disease of native coronary artery without angina pectoris; Z79.899 Other long term (current) drug therapy; Z98.890 Other specified postprocedural states
CPT/HCPCS: 36415; 80048; 80061; 85025; 85610; 85730; 92960; 93005; J2250; J3010; J7030